=== PATIENT | male | born 2005 | race African-American/Black ===

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

== ENCOUNTER 2025-05-07 13:59 | Emergency (ER) | payer MEDICAID, OTHER ==
[~2025-05-07] VITALS: Ht 180.3 cm; Wt 103.1 kg
[2025-05-07 14:28] VITALS: PULSE 76; RESP 18; TEMP 98.4; O2SAT 97
== END 2025-05-07 14:54 | disposition home or self-care (01) ==
LOC: FSED 14:03
DX: R20.2 Paresthesia of skin (principal); W21.01XA Struck by football, initial encounter; Y93.61 Activity, american tackle football; Y92.321 Football field as the place of occurrence of the external cause
CPT/HCPCS: 99282